=== PATIENT | male | born 1965 | race African-American/Black ===

== ENCOUNTER 2019-08-17 10:22 | Emergency (ER) | payer SELFPAY ==
[~2019-08-17] VITALS: Ht 177.8 cm; Wt 61.0 kg
[2019-08-17] MEDS ORDERED: ACETAMINOPHEN WITH CODEINE 300/30MG TABLET PO ONE (12:00)
[2019-08-17 12:10] LABS: BASOPHILS % 0.9 % (0.0-2.0); HEMATOCRIT. 44.2 % (42.0-52.0); HEMOGLOBIN. 15.5 g/dL (14.0-18.0); LYMPHOCYTES % 13.9 % (20.0-50.0); MEAN CORPUSCULAR HEMOGLOBIN 34.5 pg (28.0-32.0); MEAN CORPUSCULAR VOLUME 98.4 fL (80.0-94.0); MEAN PLATELET VOLUME 9.6 fl (7.4-10.4); MONOCYTES % 6.2 % (2.0-8.0); PLATELET 147 x1000/uL (130-400); RED BLOOD CELL COUNT 4.49 mill/uL (4.7-6.1); RED CELL DISTRIBUTION WIDTH 13.5 % (11.6-14.6)
[2019-08-17 12:23] LABS: CHLORIDE 98 mEq/L (98-107)
[2019-08-17 12:55] VITALS: BP 156/81
== END 2019-08-17 13:03 | disposition home or self-care (01) ==
LOC: ER 10:37
DX: S22.41XA Multiple fractures of ribs, right side, initial encounter for closed fracture (principal); S27.0XXA Traumatic pneumothorax, initial encounter; R00.0 Tachycardia, unspecified; Z03.818 Encounter for observation for suspected exposure to other biological agents ruled out; W01.0XXA Fall on same level from slipping, tripping and stumbling without subsequent striking against object, initial encounter; Y93.89 Activity, other specified; Y92.89 Other specified places as the place of occurrence of the external cause
CPT/HCPCS: 36415; 71101; 80053; 85025; 87635; 93005; 99285; C9803-CS; U0003-CS